=== PATIENT | male | born 1940 | race Caucasian/White ===

== ENCOUNTER 2021-08-10 16:17 | Emergency (ER) | payer MEDICARE ==
[~2021-08-10] VITALS: Ht 177.8 cm; Wt 120.0 kg
--- NOTE | 2021-08-10 17:13 | PHYS DOC ---
Past History Additional Past Medical Histor: skin CA, chronic leg swelling, (DELTA AZEVEDO MARINE TECHNICIAN) Past Surgical History: Appendectomy Additional Past Surgical Histo: bilateral shoulders, carpal tunnal, cataract (DELTA AZEVEDO MARINE TECHNICIAN) Alcohol Use: Rarely (DELTA AZEVEDO APRN) General Adult EDM: Chief Complaint: LOWER EXTREMITY SWELLING HPI: HPI: Patient is an 80-year-old male that presents today for bilateral leg swelling with a weeping wound area on the left leg. Patient states he has had bilateral leg swelling for well over 10 years, couple of months ago patient had an area that was weeping he went to Dr. Lagunas's office and they wrapped his wounds and gave him some topical antibiotic ointment to place on the wounds, according to the nephew and the patient the wound got better, then a couple weeks ago the area came back again and has not gotten better with conventional treatment. Dr. Lagunas's office was to refer patient to the cycle specialist and according to the nephew they just got the referral today and have not seen wound care. Patient is having increased pain in the left leg area where the weeping is occurred. Patient states the swelling in his legs is no better no worse, except for the left leg which has the weeping wound. Patient denies chest pain, shortness of air, or fever and chills. (DELTA AZEVEDO APRN) Review of Systems: Review of Systems: Constitutional: Denies fever or chills Eyes: Denies change in visual acuity HENT: Denies nasal congestion or sore throat Respiratory: Denies cough or shortness of breath Cardiovascular: Denies chest pain or edema GI: Denies abdominal pain, nausea, vomiting, bloody stools or diarrhea : Denies dysuria Musculoskeletal: Left leg wound weeping and pain Integument: Denies rash Neurologic: Denies headache, focal weakness or sensory changes Endocrine: Denies polyuria or polydipsia Lymphatic: Denies swollen glands Psychiatric: Denies depression or anxiety (DELTA AZEVEDO APRN) Current Medications: Current Meds: Amlodipine 5 mg daily Protonix 40 mg daily Lisinopril 20 mg daily Atorvastatin 10 mg daily Aricept 5 mg daily Potassium chloride 10 mEq daily Lasix 60 mg daily, per the nephew patient has not been taking this (DELTA AZEVEDO APRN) Allergies: Allergies: Allergies Coded Allergies Type Severity Reaction Last Updated Verified No Known Drug Allergies 08/10/21 No (DELTA AZEVEDO APRN) Physical Exam: PE: Constitutional: Well developed, well nourished, mild distress, non-toxic appearance. [] HENT: Normocephalic, atraumatic, bilateral external ears normal, oropharynx moist, no oral exudates, nose normal. [] Eyes: PERRLA, EOMI, conjunctiva normal, no discharge. [] Neck: Normal range of motion, no tenderness, supple, no stridor. [] Cardiovascular:Heart rate regular rhythm, no murmur [] Lungs & Thorax: Bilateral breath sounds diminished in the bases Abdomen: Bowel sounds normal, soft, no tenderness, no masses, no pulsatile masses. [] Skin: Warm, dry, no erythema, no rash. [] Back: No tenderness, no CVA tenderness. [] Extremities: Bilateral 4+ pitting edema in his legs, extremely dry skin flaking off of the feet and toes, patient has an area on the left lower leg near the ankle area that is at approximately 10 cm x 10 cm that is inflamed that has a clear drainage to it with blisters. No erythema noted around the wound. 1+ pulses in his leg with capillary refill less than 2 seconds Neurologic: Alert and oriented X 3, normal motor function, normal sensory function, no focal deficits noted. [] Psychologic: Affect normal, judgement normal, mood normal. [] (DELTA AZEVEDO APRN) Current Patient Data: Labs: Laboratory Tests Test 08/10/21 17:30 08/10/21 18:30 White Blood Count 5.3 x10^3/uL Red Blood Count 3.98 x10^6/uL Hemoglobin 10.3 g/dL Hematocrit 33.0 % Mean Corpuscular Volume 83 fL Mean Corpuscular Hemoglobin 26 pg Mean Corpuscular Hemoglobin Concent 31 g/dL Red Cell Distribution Width 18.8 % Platelet Count 224 x10^3/uL Neutrophils (%) (Auto) 48 % Lymphocytes (%) (Auto) 31 % Monocytes (%) (Auto) 12 % Eosinophils (%) (Auto) 7 % Basophils (%) (Auto) 2 % Neutrophils # (Auto) 2.5 x10^3uL Lymphocytes # (Auto) 1.6 x10^3/uL Monocytes # (Auto) 0.6 x10^3/uL Eosinophils # (Auto) 0.4 x10^3/uL Basophils # (Auto) 0.1 x10^3/uL Sodium Level 140 mmol/L Potassium Level 4.4 mmol/L Chloride Level 104 mmol/L Carbon Dioxide Level 28 mmol/L Anion Gap 8 Blood Urea Nitrogen 25 mg/dL Creatinine 1.0 mg/dL Estimated GFR (Cockcroft-Gault) 71.5 BUN/Creatinine Ratio 25 Glucose Level 109 mg/dL Calcium Level 8.7 mg/dL Total Bilirubin 0.2 mg/dL Aspartate Amino Transf (AST/SGOT) 20 U/L Alanine Aminotransferase (ALT/SGPT) 21 U/L Alkaline Phosphatase 93 U/L AR-Six-O-Type Natriuretic Peptide 252 pg/mL Total Protein 6.7 g/dL Albumin 3.2 g/dL Albumin/Globulin Ratio 0.9 Current Medications Medications (Trade) Dose Ordered Sig/Beata Route PRN Reason Start Time Stop Time Status Last Admin Dose Admin Acetaminophen/ Hydrocodone Bitart (Lortab 5/325) 1 tab 1X ONCE PO 08/10/21 18:45 08/10/21 18:46 DC 08/10/21 19:28 Vital Signs: Vital Signs Date Time Temp Pulse Resp B/P (MAP) Pulse Ox O2 Delivery O2 Flow Rate FiO2 08/10/21 20:00 91 22 133/70 (91) 97 Room Air 08/10/21 19:00 90 22 126/70 (88) 94 Room Air 08/10/21 16:42 98.7 80 22 135/63 (87) 97 Room Air Vital Signs Date Time Temp Pulse Resp B/P (MAP) Pulse Ox O2 Delivery O2 Flow Rate FiO2 08/10/21 16:42 98.7 80 22 135/63 (87) 97 Room Air (DELTA AZEVEDO APRN) EKG: EKG: [] (DELTA AZEVEDO APRN) Radiology/Procedures: Radiology/Procedures: []REASON: leg swelling PROCEDURE: CHEST AP ONLY XR CHEST 1V CLINICAL INDICATIONS: Reason: leg swelling / Spl. Instructions: / History: COMPARISON: None. Findings: No acute lung infiltrate or pleural effusion or pulmonary edema or lung mass or pneumothorax is seen. There is a round mass of the inferior right hilar region. The mediastinum and heart size are unremarkable otherwise. IMPRESSION: No acute lung infiltrate. Mass of the right hilar region. Recommend outpatient chest CT with IV contrast for further evaluation. Electronically signed by: Marlo Alba MD (08/10/2021 5:39 PM) [id number] (DELTA AZEVEDO APRN) Heart Score: C/O Chest Pain: N/A Risk Factors: Risk Factors: DM, Current or recent (<one month) smoker, HTN, HLP, family history of CAD, obesity. Risk Scores: Score 0 - 3: 2.5% MACE over next 6 weeks - Discharge Home Score 4 - 6: 20.3% MACE over next 6 weeks - Admit for Clinical Observation Score 7 - 10: 72.7% MACE over next 6 weeks - Early Invasive Strategies (DELTA AZEVEDO APRN) Course & Med Decision Making: Course & Med Decision Making Pertinent Labs and Imaging studies reviewed. (See chart for details) 1935 spoke to patient and nephew regarding lab results, no signs and symptoms of infection. Gave patient option of admission or to go home over the weekend with some pain pills to change dressing 3 times daily and to start 20 mg of Lasix a day to help with the weeping. Nephew and patient wished to go home and manage this at home. Gave strict instructions for the nephew to return with patient if increased pain not relieved by pain pills, redness with foul odor or drainage is noted, or patient has a decrease in level of consciousness due to infection or starts running a fever. They are agreeable to the plan of care (DELTA AZEVEDO APRN) Dragon Disclaimer: Dragon Disclaimer: This electronic medical record was generated, in whole or in part, using a voice recognition dictation system. (DELTA AZEVEDO APRN) Departure Departure: Impression: Primary Impression: Wound of left lower extremity Qualified Codes: S81.802D - Unspecified open wound, left lower leg, subsequent encounter Additional Impression: Wound drainage Disposition: HOME / SELF CARE / HOMELESS Condition: STABLE Referrals: JORDYN HUMPHREY MD (PCP) Patient Instructions: Wound Care, [id number] Additional Instructions: Apply wound dressing 2-3 times daily depending on the amount of drainage noted Take pain medicine 1 to 2 tablets every 6 hours as needed for pain Lasix 20 mg once daily Return to the emergency department for increased pain not relieved by pain pills, fever, wound becomes red, swollen, increased wound drainage with an odor noted, or patient has a change in mentation. Scripts Furosemide (LASIX) 20 Mg Tablet 1 TAB PO DAILY for leg swelling for 10 Days, #10 TAB 0 Refills Prov: DELTA AZEVEDO APRN 08/10/21 Hydrocodone Bit/Acetaminophen (HYDROCODONE-APAP 5-325 ) 1 Each Tablet 1 TAB PO PRN Q6HRS PRN for PAIN, #20 TAB 0 Refills Prov: DELTA AZEVEDO APRN 08/10/21 Attending Signature Attending Signature I have participated in the care of this patient and I have reviewed and agree with all pertinent clinical information above including history, exam, and recommendations. (MARCO GREEN MD) DELTA AZEVEDO APRN Aug 10, 2021 17:13 MARCO GREEN MD Aug 12, 2021 20:24
--- NOTE | 2021-08-10 17:41 | RAD ---
XR CHEST 1V CLINICAL INDICATIONS: Reason: leg swelling / Spl. Instructions: / History: COMPARISON: None. Findings: No acute lung infiltrate or pleural effusion or pulmonary edema or lung mass or pneumothora x is seen. There is a round mass of the inferior right hilar region. The mediastinum and heart size a re unremarkable otherwise. IMPRESSION: No acute lung infiltrate. Mass of the right hilar region. Recommend outpatient chest CT with IV contrast for further evaluation . Electronically signed by: Marlo Alba MD (08/10/2021 5:39 PM) [id number]
[2021-08-10 18:03] LABS: BASO # 0.1 x10^3/uL (0.0-0.2); BASO % 2 % (0-3); EOS # 0.4 x10^3/uL (0.0-0.7); EOS % 7 % (0-3); HEMOGLOBIN 10.3 g/dL (13.0-17.5); LYMPH # 1.6 x10^3/uL (1.0-4.8); LYMPH % 31 % (24-48); MEAN CORPUSCULAR HEMOGLOBIN 26 pg (25-35); MEAN CORPUSCULAR HGB CONC 31 g/dL (31-37); MEAN CORPUSCULAR VOLUME 83 fL (79-100); MONO # 0.6 x10^3/uL (0.0-1.1); MONO % 12 % (0-9); NEUT # 2.5 x10^3uL (1.8-7.7); NEUT % 48 % (31-73); PLATELET COUNT 224 x10^3/uL (140-400); RED BLOOD COUNT 3.98 x10^6/uL (4.30-5.70); RED CELL DISTRIBUTION WIDTH 18.8 % (11.5-14.5); WHITE BLOOD COUNT 5.3 x10^3/uL (4.0-11.0)
[2021-08-10] MEDS ORDERED: HYDROcodone/APAP 5/325MG 1 TAB TABLET PO ONE ×2 (18:45→20:15)
[2021-08-10 19:07] LABS: CALCIUM 8.7 mg/dL (8.5-10.1); GFR 71.5; POTASSIUM 4.4 mmol/L (3.5-5.1)
[2021-08-10 19:20] LABS: ALBUMIN 3.2 g/dL (3.4-5.0); ALBUMIN/GLOBULIN RATIO 0.9 (1.0-1.7); TOTAL BILIRUBIN 0.2 mg/dL (0.2-1.0); TOTAL PROTEIN 6.7 g/dL (6.4-8.2)
[2021-08-10 20:00] VITALS: BP 133/70
[2021-08-10] MEDS ORDERED: FURO-69 PO (20:02)
[2021-08-10] MEDS ORDERED: HYDR-2155 PO (20:02)
== END 2021-08-10 20:25 | disposition home or self-care (01) ==
LOC: EDBD 16:17 → ER 16:17
DX: S81.802A Unspecified open wound, left lower leg, initial encounter (principal); X58.XXXA Exposure to other specified factors, initial encounter; Y93.89 Activity, other specified; Y92.89 Other specified places as the place of occurrence of the external cause; Y99.8 Other external cause status
CPT/HCPCS: 36415; 71045; 80053; 83880; 85025; 99284-25